=== PATIENT | male | born 1995 | race Two or more races ===

== ENCOUNTER 2017-05-02 05:55 | Inpatient (IN) | payer OTHER ==
[2017-05-02] MEDS: IV NORMAL SALINE 1000ML BAG 1,000 ML IV ×2 (06:20)
[2017-05-02] MEDS ORDERED: CONTRAST GIVEN MC ×2 (06:30)
[2017-05-02] MEDS: ONDANSETRON PF 4 MG/2 ML VIAL. IV ×4 (06:36→10:36)
[2017-05-02] MEDS: MORPHINE SULFATE 2 MG/ML DISP.SYRIN. IV/SQ ×4 (06:37→07:25)
[2017-05-02 07:03] LABS: ANION GAP 12 (6-14); BASO # 0.1 x10^3/uL (0.0-0.2); BASO % 0 % (0-3); BLOOD UREA NITROGEN 20 mg/dL (8-26); BUN/CREATININE RATIO 22 (6-20); CALCIUM 9.5 mg/dL (8.5-10.1); CARBON DIOXIDE 24 mmol/L (21-32); CHLORIDE 101 mmol/L (98-107); CREATININE 0.9 mg/dL (0.7-1.3); EOS # 0.1 x10^3/uL (0.0-0.7); EOS % 1 % (0-3); GFR 106.5; GLUCOSE 160 mg/dL (70-99); HEMATOCRIT 49.5 % (39.0-53.0); HEMOGLOBIN 16.9 g/dL (13.0-17.5); LYMPH # 1.4 x10^3/uL (1.0-4.8); LYMPH % 7 % (24-48); MEAN CORPUSCULAR HEMOGLOBIN 29 pg (25-35); MEAN CORPUSCULAR HGB CONC 34 g/dL (31-37); MEAN CORPUSCULAR VOLUME 84 fL (79-100); MONO % 4 % (0-9); NEUT # 19.3 x10^3uL (1.8-7.7); NEUT % 88 % (31-73); PLATELET COUNT 294 x10^3/uL (140-400); RED BLOOD COUNT 5.89 x10^6/uL (4.30-5.70); SODIUM 137 mmol/L (136-145); WHITE BLOOD COUNT 21.8 x10^3/uL (4.0-11.0)
[2017-05-02 07:06] LABS: BILIRUBIN,URINE NEGATIVE (NEG); CLARITY,URINE CLEAR; COLOR,URINE YELLOW; GLUCOSE,URINE NEGATIVE (NEG); NITRITE,URINE NEGATIVE (NEG); PROTEIN,URINE 30 mg/dL (NEG-TRACE); UROBILINOGEN,URINE 0.2 mg/dL (0.2 mg/dL)
[2017-05-02 07:07] LABS: ALBUMIN 4.7 g/dL (3.4-5.0); ALBUMIN/GLOBULIN RATIO 1.3 (1.0-1.7); ALK PHOS 51 U/L (46-116); ALT (SGPT) 86 U/L (16-63); AST (SGOT) 28 U/L (15-37); LIPASE 108 U/L (73-393); TOTAL BILIRUBIN 0.8 mg/dL (0.2-1.0); TOTAL PROTEIN 8.3 g/dL (6.4-8.2)
[2017-05-02 07:09] LABS: ADD MAN DIFF? YES
[2017-05-02] MEDS: IOHEXOL 300 MG/ML 100ML VIAL. IV ×2 (07:13)
[2017-05-02 07:22] LABS: BACTERIA,URINE 0 /HPF (0-FEW); SQUAMOUS EPITHELIAL CELL,UR FEW /LPF; WBC,URINE 0 /HPF (0-4)
[2017-05-02] MEDS: MORPHINE SULFATE 4 MG/ML DISP.SYRIN. IV ×8 (08:08→23:32)
[2017-05-02 09:28] LABS: % ATYL 1 % (0-0); % BANDS 19 % (0-9); % LYMPHS 7 % (24-48); % MONOS 1 % (0-10); % SEGS 72 % (35-66)
[2017-05-02 09:29] LABS: PLT ESTIMATE ADEQUATE (ADEQUATE)
[2017-05-02] MEDS: POTASSIUM CL 20MEQ D5-0.45NACL 1,000 ML IV ×4 (10:40→20:51)
[2017-05-02] MEDS: FAMOTIDINE 20 MG/2 ML VIAL IVP ×2 (20:51)
[2017-05-03 00:16] LABS: C DIFF BY PCR Negative (Negative)
[2017-05-03] MEDS: POTASSIUM CL 20MEQ D5-0.45NACL 1,000 ML IV ×6 (05:07→15:57)
[2017-05-03 05:25] LABS: ADD MAN DIFF? NO
[2017-05-03 05:40] LABS: BASO % 0 % (0-3); EOS # 0.2 x10^3/uL (0.0-0.7); EOS % 3 % (0-3); HEMATOCRIT 44.6 % (39.0-53.0); HEMOGLOBIN 14.7 g/dL (13.0-17.5); LYMPH # 1.2 x10^3/uL (1.0-4.8); LYMPH % 20 % (24-48); MEAN CORPUSCULAR HEMOGLOBIN 28 pg (25-35); MEAN CORPUSCULAR HGB CONC 33 g/dL (31-37); MEAN CORPUSCULAR VOLUME 86 fL (79-100); MONO # 0.5 x10^3/uL (0.0-1.1); MONO % 9 % (0-9); NEUT % 68 % (31-73); PLATELET COUNT 189 x10^3/uL (140-400); RED BLOOD COUNT 5.18 x10^6/uL (4.30-5.70); WHITE BLOOD COUNT 5.9 x10^3/uL (4.0-11.0)
[2017-05-03] MEDS: FAMOTIDINE 20 MG/2 ML VIAL IVP ×2 (07:49)
[2017-05-03] MEDS: MORPHINE SULFATE 4 MG/ML DISP.SYRIN. IV ×2 (07:50)
[2017-05-03] MEDS ORDERED: ACETAMINOPHEN 500 MG TABLET PO ×2 (09:00)
[2017-05-03] MEDS ORDERED: ONDANSETRON ODT 4 MG TAB.RAPDIS. PO ×2 (09:00)
[2017-05-03] MEDS ORDERED: LOPERAMIDE 2 MG CAPSULE PO ×2 (09:00)
[2017-05-03] MEDS ORDERED: ONDANSETRON PF 4 MG/2 ML VIAL. IV ×2 (09:00)
[2017-05-03] MEDS: LOPERAMIDE 2 MG CAPSULE PO ×8 (09:57→20:31)
[2017-05-03] MEDS: HYDROcodone/APAP 5/325MG 1 TAB TABLET PO ×4 (13:42→20:30)
[2017-05-03] MEDS: FAMOTIDINE 20 MG TABLET. PO ×2 (20:30)
[2017-05-04] MEDS: POTASSIUM CL 20MEQ D5-0.45NACL 1,000 ML IV ×4 (02:15→10:52)
[2017-05-04] MEDS: LOPERAMIDE 2 MG CAPSULE PO ×12 (02:15→20:00)
[2017-05-04] MEDS: IBUPROFEN 600 MG TABLET. PO ×2 (15:38)
[2017-05-04] MEDS: FAMOTIDINE 20 MG TABLET. PO ×2 (21:00)
[2017-05-05] MEDS: LOPERAMIDE 2 MG CAPSULE PO ×6 (04:00→08:00)
== END 2017-05-05 11:25 | disposition home or self-care (01) | DRG 392 ==
LOC: ER 05:55 → 5 SOUTH 07:49
DX: A09 Infectious gastroenteritis and colitis, unspecified (principal); D70.9 Neutropenia, unspecified; K76.0 Fatty (change of) liver, not elsewhere classified; R73.9 Hyperglycemia, unspecified; R94.5 Abnormal results of liver function studies; Z82.49 Family history of ischemic heart disease and other diseases of the circulatory system
CPT/HCPCS: 36415; 74177; 80053; 81001; 83690; 85007; 85025; 87045; 87324; 96361; 96374; 96375; 96376; 99285; 99285-25; J2270; J2405; J7030; Q9967; S0028